=== PATIENT | male | born 1950 | race Caucasian/White ===

== ENCOUNTER 2017-07-16 03:12 | Emergency (ER) | payer MEDICARE, BC ==
--- NOTE | 2017-07-16 03:34 | EDM.PDOC ---
ED HPI GENERAL MEDICAL PROBLEM - General Chief Complaint: ENT Problem Stated Complaint: bleeding teeth extraction site Time Seen by Provider: 07/16/17 03:25 Source of Information: Reports: Patient, Family (), Old Records ([facility] chart/EMR) History Limitations: Reports: No Limitations - History of Present Illness INITIAL COMMENTS - FREE TEXT/NARRATIVE: The patient was brought to the emergency room via private automobile by his for evaluation of persistent mild bleeding from previous right upper molar extraction, which was conducted by Dr. Akhtar at about 15:30 hours on 07/14. The bleeding did stop at about 14:00 hours yesterday afternoon, however returned at about 23:00 hours this evening with 2 soaked 2 x 2's since that time. Patient has been taking 1000 mg of Tylenol twice a day basis since the above tooth extraction with last dose at 18:00 hours. No other changes in his medications recently, including recent antibiotics, etc. The tooth was extracted secondary to the patient chipping his tooth at about noon on 07/14. The patient denies any chest pain/pressure, heart flutter, dizziness, orthostasis, orthopnea, diaphoresis, paresthesias, recent decreased exercise tolerance, or any other anginal-type symptoms. No recent history of abdominal pain, heartburn, nausea, diarrhea, melena, gross hematochezia, or any food intolerance, including fatty foods, etc.. The patient also denies any recent fever, cough, wheezing, dyspnea , etc.. He also denies any gross hematuria or other UTI symptoms. Onset: Gradual Onset Date: 07/15/17 Onset Time: 23:00 Duration: Constant Location: Reports: Other (As above) Quality: Reports: Ache Severity: Mild Improves with: Reports: None Worsens with: Reports: None Context: Reports: Other (As above) Associated Symptoms: Reports: No Other Symptoms. Denies: Confusion, Chest Pain , Cough, Diaphoresis, Fever/Chills, Headaches, Malaise, Nausea/Vomiting, Shortness of Breath, Syncope, Weakness Treatments IP LITIGATION PARALEGAL: Reports: Acetaminophen, Dressing(s) (As above) Right Upper Oral/Mouth Pain Score (Numeric/FACES): 4 Right Upper Tooth/Teeth Pain Score (Numeric/FACES): 4 - Related Data Allergies Allergy/AdvReac Type Severity Reaction Status Date / Time ciprofloxacin Allergy Cannot Verified 07/16/17 03:15 Remember NSAIDS (Non-Steroidal Allergy Other Verified 07/16/17 03:15 Anti-Inflamma Sulfa (Sulfonamide Allergy Nausea and Verified 07/16/17 03:15 Antibiotics) Vomiting zolpidem tartrate Allergy Anaphylactic Verified 07/16/17 03:15 [From Kat] Shock Home Meds: Home Meds Carvedilol 1.5 tab PO BID 02/27/14 [History] Losartan [Cozaar] 0.5 tab PO BEDTIME 02/27/14 [History] [place]-3S/DHA/Epa/Fish Oil/D3 [Fish Cxb-Wskjl-7-Vit D Softgel] 1 cap PO DAILY 10/06 [History] Warfarin Sodium [Jantoven] 0.5 tab PO ASDIRECTED 02/27/14 [History] Warfarin [Coumadin] 2.5 mg PO ASDIRECTED 02/27/14 [History] atorvaSTATin Calcium [Atorvastatin Calcium] 10 mg PO BEDTIME 02/27/14 [History] Loratadine [Claritin] 10 mg PO BID PRN 05/02/14 [History] Aspirin [Halfprin] 81 mg PO DAILY 07/16/17 [History] Calcium Carbonate/Vitamin D3 [Calcium 600-Vit D3 800 Tab] 1 tab PO DAILY [History] Mesalamine [Delzicol] 1 tab PO BID 07/16/17 [History] Past Medical History HEENT History: Reports: Allergic Rhinitis, Impaired Vision, Other (See Below). Denies: Cataract, Glaucoma, Hard of Hearing, Macular Degeneration, Retinal Detachment Other HEENT History: Patient wears glasses Cardiovascular History: Reports: Afib, Arrhythmia, Blood Clots/VTE/DVT, CAD, Cardiomyopathy, Heart Failure, Heart Murmur, High Cholesterol, Hypertension, Pacemaker, PVD, Other (See Below). Denies: Aneurysm, [place], PTCA, Stents, Syncope Other Cardiovascular History: PVCs, complete right bundle branch block, and history of atrial fibrillation and flutter with rapid ventricular response. DVT of the left arm on 01/13/12. Dilated cardiomyopathy. Aortic valve stenosis and mitral valve insufficiency by clinical exam. Mild right-sided carotid occlusive disease Respiratory History: Reports: COPD, Sleep Apnea, Other (See Below) Other Respiratory History: COPD and minimal pulmonary fibrosis by chest x-ray. Patient is not using his CPAP for his sleep apnea for quite some time Gastrointestinal History: Reports: Cholelithiasis, Chronic Diarrhea, Colon Polyp , Diverticulosis, Gastritis, GI Bleed, Hepatitis, Inflammatory Bowel Disease, Jaundice, Pancreatitis, Other (See Below). Denies: Bowel Obstruction, Celiac Disease, Chronic Constipation, Fecal Incontinence, GERD, Hiatal Hernia, Irritable Bowel Syndrome, PUD Other Gastrointestinal History: Ulcerative colitis initially diagnosed at age 21. Diverticulosis by CT scan. Hyperplastic colonic polyp removed at 30 cm via colonoscopy on 02/22/16. Mild GI bleed secondary to either gastritis versus exacerbation of his ulcerative colitis. Hepatitis secondary to cholelithiasis with secondary pancreatitis in January 2009 including pancreatic pseudocyst by CT scan on 03/10/09 Genitourinary History: Reports: BPH, Chronic Renal Insuffiency, Renal Calculus, Other (See Below). Denies: Acute Renal Failure, STD, Urinary Incontinence, UTI , Recurrent Other Genitourinary History: Mild BPH by CT scan. History of right-sided urolithiasis initially diagnosed on 02/27/14 with subsequent moderate hydronephrosis on 05/02/14 requiring stone extraction as below. Mild renal insufficiency. Benign left-sided renal cyst by CT scan on 02/27/14 Musculoskeletal History: Reports: Arthritis, Osteoarthritis. Denies: Amputation , Back Pain, Chronic, Fracture, Gout, Neck Pain, Chronic, RA, SLE Neurological History: Reports: Vertigo. Denies: Cerebral Aneurysms, Concussion , CVA, Headaches, Chronic, Head Trauma, Migraines, MS, Neuropathy, Diabetic, Neuropathy, Peripheral, Parkinson's, Seizure, TIA Psychiatric History: Reports: None. Denies: Abuse, Victim of, ADD, ADHD, Addiction, Anxiety, Depression, Psych Hospitalization(s), Psychosis, PTSD, Suicide Attempt, Suicidal Ideation Endocrine/Metabolic History: Reports: None. Denies: Diabetes, Type I, Diabetes , Type II, Diabetes Mellitus, Type 3c, Hyperthyroidism, Hypothyroidism, IDDM, Osteoporosis Hematologic History: Reports: None. Denies: Anemia, Blood Transfusion(s), Iron Deficiency Immunologic History: Reports: None. Denies: AIDS, HIV, SLE Oncologic (Cancer) History: Reports: None. Denies: Basal Cell Carcinoma, Colon , Hodgkin's Lymphoma, Leukemia, Malignant Melanoma, Non-Hodgkin's Lymphoma, Prostate, Squamous Cell Carcinoma Dermatologic History: Reports: None. Denies: Eczema, Psoriasis - Infectious Disease History Infectious Disease History: Reports: Chicken Pox, Mumps. Denies: C-Difficile, Measles, Meningitis, Mononucleosis, MRSA, Pertussis (Whooping Cough), Rheumatic Fever, Rubella, Scarlet Fever, Shingles, TB, VRE - Past Surgical History Head Surgeries/Procedures: Reports: None HEENT Surgical History: Reports: Oral Surgery, Other (See Below). Denies: Adenoidectomy, Cataract Surgery, Eye Surgery, Laser Surgery, LASIK, Myringotomy w Tube(s), Naso-Sinus Surgery, Tonsillectomy Other HEENT Surgeries/Procedures: Right upper molar extraction on 07/14/17 Cardiovascular Surgical History: Reports: Pacer, Other (See Below). Denies: Varicose, Vascular Surgery Other Cardiovascular Surgeries/Procedures: AICD/pacemaker placement in May 2010 Respiratory Surgical History: Reports: None. Denies: Thoracentesis GI Surgical History: Reports: Cholecystectomy, Colonoscopy, Hernia, Inguinal, Polypectomy, Other (See Below). Denies: Appendectomy, EGD, Hernia, Abdominal, Hernia Repair/Other Other GI Surgeries/Procedures: History of recurrent benign colonic polyps with removal of hyperplastic colonic polyp as above at time of last colonoscopy on with previous procedure on 12/31/12. Laparoscopic cholecystectomy on . Direct\Indirect right inguinal hernia repair in about 2011 with additional history of left inguinal hernia repair Male Surgical History: Reports: Circumcision, Renal Calculus, Ureteral Stent , Vasectomy, Other (See Below). Denies: Prostate Biopsy, TURP-Transurethral Resection of Prostate Other Male Surgeries/Procedures: Circumcision as an . Vasectomy in about 1975. Right sided ureteral stone extraction in May 2014 Endocrine Surgical History: Reports: None. Denies: Thyroidectomy Neurological Surgical History: Reports: None. Denies: C-Spine, Discectomy, Laminectomy, Lumbar Spine, Sacral Spine, Spinal Fusion, Vertebroplasty Musculoskeletal Surgical History: Reports: None. Denies: Arthroscopic Procedure , Carpal Tunnel, Ganglion Cyst, Joint Replacement, ORIF, Shoulder Surgery Oncologic Surgical History: Reports: None Dermatological Surgical History: Reports: None - Past Imaging History Past Imaging History: Reports: Angiography (Heart catheterization last in November 2008), Carotid US (03/12/13), CAT Scan (CT of the abdomen and pelvis using kidney stone protocol on 05/02/[address] scan of the abdomen and pelvis on 02/27/14. CT of the head on 03/12/13), MRI (Abdomen on 03/13/09), Ultrasound (Renal ultrasound on 05/06/14. Abdominal ultrasound on 03/10/09) Social & Family History - Family History Cardiac: Reports: CAD, [place], Other (See Below) Other Cardiac Family History: Father with fatal NY in his early 90s. Paternal grandfather with fatal [place] at about age 90. Maternal grandfather with fatal NY in her 70s GI: Reports: Inflammatory Bowel Disease, Other (See Below) Other GI Family History: Younger brother and twin sister with Crohn's disease. One nephew with ulcerative colitis. Patient denies 5 siblings having ulcerative colitis in the past despite medical records Endocrine/Metabolic: Reports: Diabetes, type II, IDDM, Other (See Below) Other Endocrine/Metabolic Family History: Father with IDDM - Tobacco Use Smoking Status *Q: Never Smoker Used Tobacco, but Quit: No Smoking Cessation Information Provided To Patient: No Second Hand Smoke Exposure: No Second Hand Smoke Education Provided: No - Caffeine Use Caffeine Use: Reports: Soda (1 per week). Denies: Coffee, Energy Drinks, Tea - Alcohol Use Days Per Week of Alcohol Use: 0 (No previous DWI, etc.) Alcohol Use in Last Twelve Months: No - Recreational Drug Use Recreational Drug Use: No Drug Use in Last 12 Months: No Recreational Drug Type: Denies: Amphetamines (Speed), Cocaine, Heroin, Inhalants (Glues, Solvents, Aerosols), LSD (Acid), Marijuana/Hashish, Methamphetamine, Morphine - Living Situation & Occupation Living situation: Reports: (1974, 2 children), with Family Occupation: Retired (Retired at age 2010 from [employer] will work) ED ROS GENERAL - Review of Systems Review Of Systems: ROS reveals no pertinent complaints other than HPI. ED EXAM, GENERAL - Physical Exam Exam: See Below Exam Limited By: No Limitations General Appearance: Alert, WD/WN, No Apparent Distress Eye Exam: Bilateral Eye: EOMI, Normal Inspection (No nystagmus. Patient wearing glasses), PERRL Ears: Normal External Exam, Normal Canal, Hearing Grossly Normal, Normal TMs Nose: Normal Inspection, Normal Mucosa, No Blood Throat/Mouth: Normal Lips, Normal Gums, Normal Voice, No Airway Compromise. No : Normal Teeth (Mild bleeding from right upper molar extraction site), Normal Oropharynx, Dysphagia, Inflammation, Perioral Cyanosis Head: Atraumatic, Normocephalic. No: Facial Swelling, Facial Tenderness, Sinus Tenderness Neck: Normal Inspection, Supple, Non-Tender, Full Range of Motion. No: Lymphadenopathy (L), Lymphadenopathy (R), Thyromegaly Respiratory/Chest: No Respiratory Distress, Lungs Clear, Normal Breath Sounds, No Accessory Muscle Use, Chest Non-Tender. No: Pleural Rub, Retractions Cardiovascular: Normal Peripheral Pulses, Regular Rate, Rhythm, No Edema, No Gallop, No JVD, No Rub, Systolic Murmur (Mild 1/6 HUNG at the aortic and mitral valves). No: Gallop/S3, Gallop/S4, Friction Rub Peripheral Pulses: 2+: Radial (L), Radial (R) GI/Abdominal: Normal Bowel Sounds, Soft, Non-Tender, No Organomegaly, No Distention, No Abnormal Bruit, No Mass. No: Guarding (Male) Exam: Deferred Rectal (Males) Exam: Deferred Back Exam: Normal Inspection, Full Range of Motion. No: CVA Tenderness (L), CVA Tenderness (R), Muscle Spasm Extremities: Normal Inspection, Normal Range of Motion, Non-Tender, No Pedal Edema, Normal Capillary Refill. No: Lionel's Sign Neurological: Alert, Oriented, CN II-XII Intact, Normal Cognition, Normal Gait, No Motor/Sensory Deficits Psychiatric: Normal Affect, Normal Mood Skin Exam: Warm, Dry, Intact, Normal Color, No Rash. No: Diaphoretic, Ecchymosis, Petechiae Lymphatic: No Adenopathy Course - Vital Signs Last Recorded V/S: Last Vital Signs Temp 36.5 C 07/16/17 03:32 Pulse 61 07/16/17 03:44 Resp 16 07/16/17 03:44 BP 111/88 07/16/17 03:44 Pulse Ox 96 07/16/17 03:44 Vital Signs - 24 hr 07/16/17 07/16/17 07/16/17 03:32 03:44 04:12 Temperature [ 36.5 C Temporal] Pulse, 59 L 61 60 Peripheral [ Left Pulse Oximetry] Respiratory 18 16 14 Rate Blood Pressure 140/71 111/88 119/78 [Right Upper Arm] O2 Sat by Pulse 99 96 96 Oximetry - Orders/Labs/Meds Orders: Active Orders 24 hr Category Date Time Status Obtain Past Medical Record [OM.PC] Routine Oth 07/16/17 03:34 Active Labs: Laboratory Tests 07/16/17 07/16/17 Range/Units 03:45 03:45 WBC 6.6 (4.0-10.2) K/uL RBC 4.49 (4.33-5.41) M/uL Hgb 14.1 (13.1-16.8) g/dL Hct 41.4 (39.0-49.0) % MCV 92.2 (84.0-98.0) fL MCH 31.4 (28.2-33.3) pg MCHC 34.1 (31.7-36.0) g/dL RDW 13.2 (11.2-14.1) % Plt Count 215 (150-350) K/uL Neut % (Auto) 56.8 (45.0-80.0) % Lymph % (Auto) 30.7 (10.0-50.0) % [place] % (Auto) 11.2 (2.0-14.0) % Eos % (Auto) 1.1 (0.0-5.0) % Baso % (Auto) 0.2 (0.0-2.0) % Neut # (Auto) 3.76 (1.40-7.00) K/uL Lymph # (Auto) 2.03 (0.50-3.50) K/uL [place] # (Auto) 0.74 (0.00-1.00) K/uL Eos # (Auto) 0.07 (0.00-0.50) K/uL Baso # (Auto) 0.01 (0.00-0.20) K/uL PT 31.2 H (9.8-11.7) SEC INR 2.8 Meds: None - Radiology Interpretation Free Text/Narrative:: None Departure - Departure Time of Disposition: 04:40 Disposition: Home, Self-Care 01 Condition: Good Clinical Impression: Heart disease, HTN, Benign hypertension, Postoperative bleeding from mouth, Ulcerative colitis Hyperlipidemia Qualifiers: Hyperlipidemia type: unspecified Qualified Code(s): E78.5 - Hyperlipidemia, unspecified Atrial fibrillation Qualifiers: Atrial fibrillation type: chronic Qualified Code(s): I48.2 - Chronic atrial fibrillation - Discharge Information Instructions: Dental Extraction, Care After, [id number] Referrals: Luna Mas NP [Primary Care Provider] - Forms: ED Department Discharge Additional Instructions: 1. Follow-up with dentist as needed depending on degree of further bleeding from extraction site as discussed 2. Hold Coumadin today and resume previous dose regimen on 07/17. Contact regular provider for further instructions on Coumadin therapy, if significant bleeding persists on 07/17 3. Hold aspirin and fish oil until 07/19 and then resume at that time, if no significant bleeding persists 4. Continue to use packing at all times, including while eating, etc., as discussed until bleeding stops completely for 48 hours - Problem List & Annotations (1) Postoperative bleeding from mouth SNOMED Code(s): 718579578 Code(s): GQR4291 - Status: Acute Priority: High Current Visit: Yes Onset Date: 07/14/17 Annotation/Comment:: The patient did not receive any instructions about holding his Coumadin or other medications despite recent tooth extraction as above. INR therapeutic today. Tylenol to be discontinued secondary to his persistent mild postoperative bleeding. He will also hold his fish oil and aspirin as per discharge instructions. Continue close follow-up by his regular provider and/or dentist. Only minimal bleeding at this time with no indication of vitamin K therapy, etc. (2) HTN, Benign hypertension SNOMED Code(s): 58592461 Code(s): I10 - ESSENTIAL (PRIMARY) HYPERTENSION Status: Acute Priority: Medium Current Visit: Yes Annotation/Comment:: Blood pressures under relatively good control today in the emergency room. (3) Heart disease SNOMED Code(s): 00292084 Code(s): I51.9 - HEART DISEASE, UNSPECIFIED Status: Acute Priority: Medium Current Visit: Yes Annotation/Comment:: No recent chest pain or anginal type symptoms. Note chronic Coumadin therapy secondary to his atrial fibrillation and previous history of DVT as above. Patient with history coronary artery disease without [place] with additional history of atrial fibrillation/flutter, dilatated cardiomyopathy, pacemaker/ICD placement, etc.. Patient's INR is therapeutic today. 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 (4) Atrial fibrillation SNOMED Code(s): 80133815 Code(s): I48.91 - UNSPECIFIED ATRIAL FIBRILLATION Status: Chronic Priority: Medium Current Visit: Yes Annotation/Comment:: As above Qualifiers: Atrial fibrillation type: chronic Qualified Code(s): I48.2 - Chronic atrial fibrillation (5) Ulcerative colitis SNOMED Code(s): 07990601 Code(s): K51.90 - ULCERATIVE COLITIS, UNSPECIFIED, WITHOUT COMPLICATIONS Status: Chronic Priority: Medium Current Visit: Yes Annotation/Comment:: Stable by history with no evidence of GI bleeds despite Coumadin therapy Qualifiers: Ulcerative colitis location: other ulcerative colitis Digestive disease complication type: without complication Qualified Code(s): K51.80 - Other ulcerative colitis without complications - Problem List Review Problem List Initiated/Reviewed/Updated: Yes - My Orders Last 24 Hours: My Active Orders 07/16/17 03:34 Obtain Past Medical Record [OM.PC] Routine - Assessment/Plan Last 24 Hours: My Active Orders 07/16/17 03:34 Obtain Past Medical Record [OM.PC] Routine Assessment:: As above Plan: As above. Extensive precautions were given to the patient and his , who are in agreement with the treatment plan. See Patient Instructions for further treatment and plan.
[2017-07-16 04:13] VITALS: BP 119/78
== END 2017-07-16 04:40 | disposition home or self-care (01) ==
LOC: LL.ED 03:12
DX: K91.841 Postprocedural hemorrhage of a digestive system organ or structure following other procedure (principal); I13.0 Hypertensive heart and chronic kidney disease with heart failure and stage 1 through stage 4 chronic kidney disease, or unspecified chronic kidney disease; I50.9 Heart failure, unspecified; N18.9 Chronic kidney disease, unspecified; E78.00 Pure hypercholesterolemia, unspecified; K51.90 Ulcerative colitis, unspecified, without complications; E78.5 Hyperlipidemia, unspecified; I48.2 Chronic atrial fibrillation; Z88.1 Allergy status to other antibiotic agents; Z88.2 Allergy status to sulfonamides; Z88.8 Allergy status to other drugs, medicaments and biological substances; Z79.82 Long term (current) use of aspirin; Z79.899 Other long term (current) drug therapy
CPT/HCPCS: 36415; 85025; 85610; 99282; 99284

== ENCOUNTER 2019-08-19 02:45 | Emergency (ER) | payer MEDICARE, BC ==
[2019-08-19 03:00] VITALS: BP 128/64; PULSE 72
[2019-08-19] MEDS ORDERED: Ketorolac 60 MG/2 ML SDV IM ONE (03:40)
[2019-08-19] MEDS ORDERED: methylPREDNISolone Sodium Succinate 125 MG/2 ML SDV IM ONE (03:41)
--- NOTE | 2019-08-19 03:47 | EDM.PDOC ---
ED HPI GENERAL MEDICAL PROBLEM - General Chief Complaint: Back Pain or Injury Stated Complaint: Back Pain Time Seen by Provider: 08/19/19 03:00 Source of Information: Reports: Patient History Limitations: Reports: No Limitations - History of Present Illness INITIAL COMMENTS - FREE TEXT/NARRATIVE: Pain in left upper back for several days extends out to shoulder blade Pt did see chiropractor yesterday with little improvement No known injury No previous hx/o same did take ibuprofen earlier tonight Pain is unchanged at 7/ 10 Pain worse with palpation or movement Onset: Gradual Duration: Day(s):, Getting Worse Location: Reports: Back Quality: Reports: Throbbing Severity: Moderate Improves with: Reports: Immobilization Worsens with: Reports: Movement Left Upper Back Pain Score (Numeric/FACES): 8 - Related Data Allergies Allergy/AdvReac Type Severity Reaction Status Date / Time ciprofloxacin Allergy Cannot Verified 08/19/19 02:47 Remember NSAIDS (Non-Steroidal Allergy Other Verified 08/19/19 02:47 Anti-Inflamma Sulfa (Sulfonamide Allergy Nausea and Verified 08/19/19 02:47 Antibiotics) Vomiting zolpidem tartrate Allergy Anaphylactic Verified 08/19/19 02:47 [From Kat] Shock Home Meds: Home Meds Losartan [Cozaar] 0.5 tab PO BEDTIME 02/27/14 [History] [place]-3S/DHA/Epa/Fish Oil/D3 [Fish Uip-Bkywi-5-Vit D Softgel] 1 cap PO DAILY 10/06 [History] Warfarin Sodium [Jantoven] 0.5 tab PO ASDIRECTED 02/27/14 [History] Warfarin [Coumadin] 2.5 mg PO ASDIRECTED 02/27/14 [History] atorvaSTATin Calcium [Atorvastatin Calcium] 10 mg PO BEDTIME 02/27/14 [History] carvediloL [Carvedilol] 1.5 tab PO BID 02/27/14 [History] Loratadine [Claritin] 10 mg PO BID PRN 05/02/14 [History] Aspirin [Halfprin] 81 mg PO DAILY 07/16/17 [History] Calcium Carbonate/Vitamin D3 [Calcium 600-Vit D3 800 Tab] 1 tab PO DAILY [History] Mesalamine [Delzicol] 1 tab PO BID 07/16/17 [History] Past Medical History HEENT History: Reports: Allergic Rhinitis, Impaired Vision, Other (See Below) Other HEENT History: Patient wears glasses Cardiovascular History: Reports: Afib, Arrhythmia, Blood Clots/VTE/DVT, CAD, Cardiomyopathy, Heart Failure, Heart Murmur, High Cholesterol, Hypertension, Pacemaker, PVD, Other (See Below) Other Cardiovascular History: PVCs, complete right bundle branch block, and history of atrial fibrillation and flutter with rapid ventricular response. DVT of the left arm on 01/13/12. Dilated cardiomyopathy. Aortic valve stenosis and mitral valve insufficiency by clinical exam. Mild right-sided carotid occlusive disease Respiratory History: Reports: COPD, Sleep Apnea, Other (See Below) Other Respiratory History: COPD and minimal pulmonary fibrosis by chest x-ray. Patient is not using his CPAP for his sleep apnea for quite some time Gastrointestinal History: Reports: Cholelithiasis, Chronic Diarrhea, Colon Polyp , Diverticulosis, Gastritis, GI Bleed, Hepatitis, Inflammatory Bowel Disease, Jaundice, Pancreatitis, Other (See Below) Other Gastrointestinal History: Ulcerative colitis initially diagnosed at age 21. Diverticulosis by CT scan. Hyperplastic colonic polyp removed at 30 cm via colonoscopy on 02/22/16. Mild GI bleed secondary to either gastritis versus exacerbation of his ulcerative colitis. Hepatitis secondary to cholelithiasis with secondary pancreatitis in January 2009 including pancreatic pseudocyst by CT scan on 03/10/09 Genitourinary History: Reports: BPH, Chronic Renal Insuffiency, Renal Calculus, Other (See Below) Other Genitourinary History: Mild BPH by CT scan. History of right-sided urolithiasis initially diagnosed on 02/27/14 with subsequent moderate hydronephrosis on 05/02/14 requiring stone extraction as below. Mild renal insufficiency. Benign left-sided renal cyst by CT scan on 02/27/14 Musculoskeletal History: Reports: Arthritis, Osteoarthritis Neurological History: Reports: Vertigo Psychiatric History: Reports: None Endocrine/Metabolic History: Reports: None Hematologic History: Reports: None Immunologic History: Reports: None Oncologic (Cancer) History: Reports: None Dermatologic History: Reports: None - Infectious Disease History Infectious Disease History: Reports: Chicken Pox, Mumps - Past Surgical History Head Surgeries/Procedures: Reports: None HEENT Surgical History: Reports: Oral Surgery, Other (See Below) Other HEENT Surgeries/Procedures: Right upper molar extraction on 07/14/17 Cardiovascular Surgical History: Reports: Pacer, Other (See Below) Other Cardiovascular Surgeries/Procedures: AICD/pacemaker placement in May 2010 Respiratory Surgical History: Reports: None GI Surgical History: Reports: Cholecystectomy, Colonoscopy, Hernia, Inguinal, Polypectomy, Other (See Below) Other GI Surgeries/Procedures: History of recurrent benign colonic polyps with removal of hyperplastic colonic polyp as above at time of last colonoscopy on with previous procedure on 12/31/12. Laparoscopic cholecystectomy on . Direct\Indirect right inguinal hernia repair in about 2011 with additional history of left inguinal hernia repair Male Surgical History: Reports: Circumcision, Renal Calculus, Ureteral Stent , Vasectomy, Other (See Below) Other Male Surgeries/Procedures: Circumcision as an . Vasectomy in about 1975. Right sided ureteral stone extraction in May 2014 Endocrine Surgical History: Reports: None Neurological Surgical History: Reports: None Musculoskeletal Surgical History: Reports: None Oncologic Surgical History: Reports: None Dermatological Surgical History: Reports: None - Past Imaging History Past Imaging History: Reports: Angiography (Heart catheterization last in November 2008), Carotid US (03/12/13), CAT Scan (CT of the abdomen and pelvis using kidney stone protocol on 05/02/[address] scan of the abdomen and pelvis on 02/27/14. CT of the head on 03/12/13), MRI (Abdomen on 03/13/09), Ultrasound (Renal ultrasound on 05/06/14. Abdominal ultrasound on 03/10/09) Social & Family History - Family History Cardiac: Reports: CAD, TN, Other (See Below) Other Cardiac Family History: Father with fatal TN in his early 90s. Paternal grandfather with fatal TN at about age 90. Maternal grandfather with fatal TN in her 70s GI: Reports: Inflammatory Bowel Disease, Other (See Below) Other GI Family History: Younger brother and twin sister with Crohn's disease. One nephew with ulcerative colitis. Patient denies 5 siblings having ulcerative colitis in the past despite medical records Endocrine/Metabolic: Reports: Diabetes, type II, IDDM, Other (See Below) Other Endocrine/Metabolic Family History: Father with IDDM - Tobacco Use Smoking Status *Q: Never Smoker Second Hand Smoke Exposure: No - Caffeine Use Caffeine Use: Reports: Coffee - Recreational Drug Use Recreational Drug Use: No - Living Situation & Occupation Living situation: Reports: (1973, 2 children), with Family Occupation: Retired (Retired at age 2010 from [employer] will work) ED ROS GENERAL - Review of Systems Review Of Systems: See Below Respiratory: Reports: No Symptoms Cardiovascular: Reports: No Symptoms GI/Abdominal: Reports: No Symptoms Musculoskeletal: Reports: Shoulder Pain, Back Pain Neurological: Reports: No Symptoms ED EXAM, UPPER BACK/NECK PAIN - Physical Exam Exam: See Below Exam Limited By: No Limitations General Appearance: Moderate Distress Neck Exam: Non-Tender Cardiovascular/Respiratory: Regular Rate, Rhythm, Normal Breath Sounds Back Exam: Other (Left upper back feeder plywood layup line over trapezius muscle and upper back Right non-tender Increased pain with movement Neuro exam intact Elbow wrist and hand intact Sensation intact) Course - Vital Signs Last Recorded V/S: Last Vital Signs Temp 98.7 F 08/19/19 02:58 Pulse 72 08/19/19 02:58 Resp 12 08/19/19 02:58 BP 128/64 08/19/19 02:58 Pulse Ox 98 08/19/19 02:58 - Orders/Labs/Meds Orders: Active Orders 24 hr Category Date Time Status Ketorolac [Toradol] Med 08/19/19 03:40 Once 60 mg IM ONETIME ONE methylPREDNISolone Sod Succ [Solu-MEDROL] Med 08/19/19 03:41 Once 125 mg IM ONETIME ONE Labs: Laboratory Tests 08/19/19 Range/Units 02:55 Specimen Type Urinblad Urine Color Yellow Urine Appearance Clear Urine pH 6.0 (5.0-9.0) Ur Specific H[place] 1.025 (1.005-1.030) Urine Protein Negative (NEGATIVE) mg/dL Urine Glucose (UA) Negative (NEGATIVE) mg/dL Urine Ketones Negative (NEGATIVE) mg/dL Urine Occult Blood Small H (NEGATIVE) Urine Nitrite Negative (NEGATIVE) Urine Bilirubin Negative (NEGATIVE) Urine Urobilinogen 0.2 (0.2-1.0) E.U./dL Ur Leukocyte Esterase Trace H (NEGATIVE) Urine RBC 0-5 /HPF Urine WBC 10-20 H /HPF Ur Epithelial Cells Few /LPF Urine Bacteria Rare (NONE TO FEW) /HPF Urine Mucus Rare H (NEGATIVE) /LPF - Re-Assessments/Exams Free Text/Narrative Re-Assessment/Exam: 08/19/19 03:46 Pt given Toradol 60 mg and Solu-medrol 125 mg IM in ER Departure - Departure Time of Disposition: 04:00 Disposition: Home, Self-Care 01 Clinical Impression: Upper back pain on left side - Discharge Information *PRESCRIPTION DRUG MONITORING PROGRAM REVIEWED*: Not Applicable *COPY OF PRESCRIPTION DRUG MONITORING REPORT IN PATIENT PETE: Not Applicable Referrals: Luna Mas NP [Primary Care Provider] - Additional Instructions: Follow up in clinic Sepsis Event Note - Evaluation Sepsis Screening Result: No Definite Risk - Focused Exam Vital Signs: Vital Signs Temp Pulse Resp BP Pulse Ox 08/19/19 02:58 98.7 F 72 12 128/64 98 Date Exam was Performed: 08/19/19 Time Exam was Performed: 03:42 - My Orders Last 24 Hours: My Active Orders 08/19/19 03:40 Ketorolac [Toradol] 60 mg IM ONETIME ONE 08/19/19 03:41 methylPREDNISolone Sod Succ [Solu-MEDROL] 125 mg IM ONETIME ONE - Assessment/Plan Last 24 Hours: My Active Orders 08/19/19 03:40 Ketorolac [Toradol] 60 mg IM ONETIME ONE 08/19/19 03:41 methylPREDNISolone Sod Succ [Solu-MEDROL] 125 mg IM ONETIME ONE
[2019-08-19] MEDS ORDERED: Cyclobenzaprine 10 MG Tab PO ONE (03:50)
== END 2019-08-19 04:05 | disposition home or self-care (01) ==
LOC: LL.ED 02:45
DX: M54.6 Pain in thoracic spine (principal); I13.0 Hypertensive heart and chronic kidney disease with heart failure and stage 1 through stage 4 chronic kidney disease, or unspecified chronic kidney disease; N18.9 Chronic kidney disease, unspecified; I50.9 Heart failure, unspecified; I48.91 Unspecified atrial fibrillation; I25.10 Atherosclerotic heart disease of native coronary artery without angina pectoris; E78.00 Pure hypercholesterolemia, unspecified; Z86.718 Personal history of other venous thrombosis and embolism; J44.9 Chronic obstructive pulmonary disease, unspecified; M19.90 Unspecified osteoarthritis, unspecified site; Z88.2 Allergy status to sulfonamides; Z88.1 Allergy status to other antibiotic agents; Z88.8 Allergy status to other drugs, medicaments and biological substances; Z79.82 Long term (current) use of aspirin; Z79.899 Other long term (current) drug therapy
CPT/HCPCS: 81001; 96372; 99283; A9270; J1885; J2930

== ENCOUNTER 2022-10-03 12:01 | Emergency (ER) | payer OTHER, MEDICARE, BC ==
[2022-10-03 12:19] LABS: BASOPHILS ABSOLUTE AUTO 0.08 K/uL (0.00-0.20); BASOPHILS PERCENT AUTO 0.6 % (0.0-2.0); EOSINOPHILS ABSOLUTE AUTO 0.34 K/uL (0.00-0.50); EOSINOPHILS PERCENT AUTO 2.4 % (0.0-5.0); HEMATOCRIT 36.9 % (39.0-49.0); HEMOGLOBIN 11.9 g/dL (13.1-16.8); LYMPHOCYTES ABSOLUTE AUTO 1.91 K/uL (0.50-3.50); LYMPHOCYTES PERCENT AUTO 13.6 % (10.0-50.0); MEAN CORPUSCULAR HEMOGLOBIN 31.2 pg (28.2-33.3); MEAN CORPUSCULAR HGB CONC 32.2 g/dL (31.7-36.0); MEAN CORPUSCULAR VOLUME 96.9 fL (84.0-98.0); MONOCYTES ABSOLUTE AUTO 1.11 K/uL (0.00-1.00); MONOCYTES PERCENT AUTO 7.9 % (2.0-14.0); NEUTROPHILS ABSOLUTE AUTO 10.63 K/uL (1.40-7.00); NEUTROPHILS PERCENT AUTO 75.5 % (45.0-80.0); PLATELET COUNT,PLT 571 K/uL (150-350); RED BLOOD CELL COUNT 3.81 M/uL (4.33-5.41); RED CELL DISTRIBUTION WIDTH 13.7 % (11.2-14.1); WHITE BLOOD CELL COUNT,WBC 14.1 K/uL (4.0-10.2)
[2022-10-03] MEDS ORDERED: Diltiazem 25 MG/5 ML SDV IVPUSH ONE (12:21)
[2022-10-03] MEDS ORDERED: Sodium Chloride 0.9% 1,000 ML IV ONE ×2 (12:30→16:43)
[2022-10-03 12:32] LABS: INR 1.1
[2022-10-03 12:35] LABS: PROTHROMBIN TIME 10.6 SEC (9.6-11.3)
[2022-10-03 12:47] LABS: ALANINE AMINOTRANSFERASE,ALT 24 U/L (12-78); ALBUMIN 3.5 g/dL (3.4-5.0); ALKALINE PHOSPHATASE 114 IU/L (46-116); ANION GAP 10.5 meq/L (7-15); ASPARTATE AMNIOTRANSFERASE,AST 20 U/L (15-37); BILIRUBIN TOTAL 0.5 mg/dL (0.2-1.0); BLOOD UREA NITROGEN,BUN 21 mg/dL (7-18); CALCIUM 9.4 mg/dL (8.5-10.1); CARBON DIOXIDE,CO2 27.5 mmol/L (21.0-32.0); CHLORIDE,CL 102 mmol/L (98-107); CREATININE 1.36 mg/dL (0.51-1.17); GLUCOSE RANDOM 130 mg/dL (70-99); MAGNESIUM 1.9 mg/dL (1.8-2.4); POTASSIUM,K 4.4 mmol/L (3.5-5.1); PRO B-TYPE NATRIUR PEPT,BNPPRO 4175 pg/mL (0-125); PROTEIN TOTAL,TP 7.7 g/dL (6.4-8.2); SODIUM,NA 140 mmol/L (136-145)
[2022-10-03 12:48] LABS: ESTIMATED GFR 55 mL/min (>=60)
[2022-10-03] MEDS ORDERED: Metoprolol Succinate 25 MG Tab.ER PO ONE (12:57)
[2022-10-03] MEDS ORDERED: Sodium Chloride 0.9% 10 ML Syringe FLUSH PRN (14:03)
[2022-10-03] MEDS ORDERED: Iopamidol 755 Mg/ML 100 ML Bottle IVPUSH ONE (14:03)
[2022-10-03] MEDS ORDERED: Apixaban 5 MG Tab PO ONE (15:20)
[2022-10-03] MEDS ORDERED: Heparin Sodium 5,000 Units/ML Vial IVPUSH ONE (15:53)
[2022-10-03] MEDS ORDERED: Heparin Sodium/0.45% NaCl 500 ML IV SCH (16:00)
[2022-10-03 19:44] LABS: APPEARANCE,URINE CLEAR; BILIRUBIN,URINE NEGATIVE (NEGATIVE); COLOR,URINE YELLOW; GLUCOSE,URINE NEGATIVE (NEGATIVE); KETONES,URINE NEGATIVE (NEGATIVE); LEUKOCYTE ESTERASE,URINE NEGATIVE (NEGATIVE); NITRITE,URINE NEGATIVE (NEGATIVE); OCCULT BLOOD,URINE TRACE-INTACT (NEGATIVE); PROTEIN,URINE NEGATIVE (NEGATIVE); UROBILINOGEN,URINE 0.2 E.U./dL (0.2-1.0)
[2022-10-03 19:45] LABS: BACTERIA,URINE NOT SEEN /HPF (NONE TO FEW); EPITHELIAL CELLS,URINE FEW /LPF
[2022-10-03 22:18] VITALS: BP 119/61; PULSE 75
== END 2022-10-03 19:23 ==
LOC: LL.ED 12:01
DX: I26.92 Saddle embolus of pulmonary artery without acute cor pulmonale (principal); I48.91 Unspecified atrial fibrillation; I25.10 Atherosclerotic heart disease of native coronary artery without angina pectoris; I13.0 Hypertensive heart and chronic kidney disease with heart failure and stage 1 through stage 4 chronic kidney disease, or unspecified chronic kidney disease; N18.9 Chronic kidney disease, unspecified; I50.9 Heart failure, unspecified; E78.00 Pure hypercholesterolemia, unspecified; J44.9 Chronic obstructive pulmonary disease, unspecified; M19.90 Unspecified osteoarthritis, unspecified site; I44.0 Atrioventricular block, first degree; Z88.1 Allergy status to other antibiotic agents; Z88.6 Allergy status to analgesic agent; Z88.2 Allergy status to sulfonamides; Z88.8 Allergy status to other drugs, medicaments and biological substances; Z79.82 Long term (current) use of aspirin; Z79.899 Other long term (current) drug therapy
CPT/HCPCS: 36415; 71045; 71275; 80053; 81001; 83605; 83735; 83880; 84484; 85025; 85379; 85610; 85730; 93005; 96361; 96365; 96376; 99285-25; A9270-GY; J1644; J3490; J7030; Q9967

== ENCOUNTER 2022-12-01 19:12 | Observation (INO) | payer OTHER, MEDICARE, BC ==
[2022-12-01 19:47] LABS: BASOPHILS ABSOLUTE AUTO 0.04 K/uL (0.00-0.20); BASOPHILS PERCENT AUTO 0.3 % (0.0-2.0); EOSINOPHILS ABSOLUTE AUTO 0.16 K/uL (0.00-0.50); EOSINOPHILS PERCENT AUTO 1.3 % (0.0-5.0); HEMATOCRIT 41.2 % (39.0-49.0); HEMOGLOBIN 13.3 g/dL (13.1-16.8); LYMPHOCYTES ABSOLUTE AUTO 1.84 K/uL (0.50-3.50); LYMPHOCYTES PERCENT AUTO 14.9 % (10.0-50.0); MEAN CORPUSCULAR HEMOGLOBIN 30.1 pg (28.2-33.3); MEAN CORPUSCULAR HGB CONC 32.3 g/dL (31.7-36.0); MEAN CORPUSCULAR VOLUME 93.2 fL (84.0-98.0); MONOCYTES ABSOLUTE AUTO 0.98 K/uL (0.00-1.00); MONOCYTES PERCENT AUTO 7.9 % (2.0-14.0); NEUTROPHILS ABSOLUTE AUTO 9.31 K/uL (1.40-7.00); NEUTROPHILS PERCENT AUTO 75.6 % (45.0-80.0); PLATELET COUNT,PLT 271 K/uL (150-350); RED BLOOD CELL COUNT 4.42 M/uL (4.33-5.41); WHITE BLOOD CELL COUNT,WBC 12.3 K/uL (4.0-10.2)
[2022-12-01 20:02] LABS: APPEARANCE,URINE CLEAR; BILIRUBIN,URINE NEGATIVE (NEGATIVE); COLOR,URINE YELLOW; GLUCOSE,URINE 100 mg/dL (NEGATIVE); KETONES,URINE NEGATIVE (NEGATIVE); LEUKOCYTE ESTERASE,URINE NEGATIVE (NEGATIVE); NITRITE,URINE NEGATIVE (NEGATIVE); OCCULT BLOOD,URINE MODERATE (NEGATIVE); PH,URINE 5.5 (5.0-9.0); PROTEIN,URINE TRACE mg/dL (NEGATIVE); UROBILINOGEN,URINE 0.2 E.U./dL (0.2-1.0)
[2022-12-01 20:11] LABS: EPITHELIAL CELLS,URINE OCCASIONAL /LPF; WBC,URINE 0-5 /HPF
[2022-12-01 20:12] LABS: BACTERIA,URINE NOT SEEN /HPF (NONE TO FEW); MUCUS,URINE RARE /LPF (NEGATIVE)
[2022-12-01] MEDS ORDERED: Morphine 2 MG/ML SYRINGE IVPUSH ONE (20:23)
[2022-12-01] MEDS ORDERED: Ondansetron 4 MG/2 ML SDV IVPUSH ONE (20:23)
[2022-12-01 20:32] LABS: ALBUMIN 3.8 g/dL (3.4-5.0); ANION GAP 11.3 meq/L (7-15); BILIRUBIN TOTAL 0.5 mg/dL (0.2-1.0); CALCIUM 9.2 mg/dL (8.5-10.1); CARBON DIOXIDE,CO2 23.7 mmol/L (21.0-32.0); CREATININE 1.14 mg/dL (0.51-1.17); EST CRCL DRUG DOSING (CG) 60.55 mL/min; MAGNESIUM 1.9 mg/dL (1.8-2.4); PROTEIN TOTAL,TP 7.6 g/dL (6.4-8.2)
[2022-12-01] MEDS: Sodium Chloride 0.9% 10 ML Syringe FLUSH PRN ×2 (20:34→21:59)
[2022-12-01] MEDS ORDERED: Iopamidol 755 Mg/ML 100 ML Bottle IVPUSH STA (21:20)
[2022-12-01] MEDS ORDERED: Morphine 2 MG/ML SYRINGE IVPUSH PRN (21:25)
[2022-12-01] MEDS ORDERED: Ondansetron 4 MG/2 ML SDV IVPUSH PRN (21:25)
[2022-12-01] MEDS ORDERED: Naloxone 0.4 MG/ML SDV IVPUSH PRN (21:25)
[2022-12-01] MEDS ORDERED: methylPREDNISolone Sodium Succinate 40 MG/1 ML SDV IVPUSH ONE (21:29)
[2022-12-01] MEDS ORDERED: Sodium Chloride 0.9% 1,000 ML IV ONE (21:29)
[2022-12-01] MEDS ORDERED: traMADol 50 MG Tab PO PRN (21:29)
[2022-12-01] MEDS: Acetaminophen 325 MG Tab PO SCH (21:56)
[2022-12-02] MEDS: Acetaminophen 325 MG Tab PO SCH (02:53)
[2022-12-02 07:31] LABS: BASOPHILS ABSOLUTE AUTO 0.02 K/uL (0.00-0.20); BASOPHILS PERCENT AUTO 0.2 % (0.0-2.0); HEMATOCRIT 39.7 % (39.0-49.0); HEMOGLOBIN 12.8 g/dL (13.1-16.8); LYMPHOCYTES ABSOLUTE AUTO 0.56 K/uL (0.50-3.50); LYMPHOCYTES PERCENT AUTO 5.1 % (10.0-50.0); MEAN CORPUSCULAR HEMOGLOBIN 30.3 pg (28.2-33.3); MEAN CORPUSCULAR HGB CONC 32.2 g/dL (31.7-36.0); MEAN CORPUSCULAR VOLUME 93.9 fL (84.0-98.0); MONOCYTES ABSOLUTE AUTO 0.23 K/uL (0.00-1.00); MONOCYTES PERCENT AUTO 2.1 % (2.0-14.0); NEUTROPHILS ABSOLUTE AUTO 10.26 K/uL (1.40-7.00); NEUTROPHILS PERCENT AUTO 92.6 % (45.0-80.0); PLATELET COUNT,PLT 257 K/uL (150-350); RED BLOOD CELL COUNT 4.23 M/uL (4.33-5.41); RED CELL DISTRIBUTION WIDTH 13.7 % (11.2-14.1); WHITE BLOOD CELL COUNT,WBC 11.1 K/uL (4.0-10.2)
[2022-12-02 07:35] LABS: CALCIUM 8.9 mg/dL (8.5-10.1); EST CRCL DRUG DOSING (CG) 69.03 mL/min; POTASSIUM,K 4.8 mmol/L (3.5-5.1)
[2022-12-02] MEDS ORDERED: Apixaban 5 MG Tab PO SCH (08:00)
[2022-12-02 09:32] VITALS: BP 138/69; PULSE 62
[2022-12-02] MEDS ORDERED: Metoprolol Succinate 25 MG Tab.ER PO SCH (18:00)
[2022-12-02] MEDS ORDERED: atorvaSTATin 20 MG Tab PO SCH (20:00)
== END 2022-12-02 09:23 | disposition home or self-care (01) ==
LOC: LL.ED 19:12 → LL.MS 21:02
PROVIDERS: ADMIT Emergency Medicine; ATTEND Emergency Medicine
DX: M25.512 Pain in left shoulder (principal); R79.89 Other specified abnormal findings of blood chemistry; E11.51 Type 2 diabetes mellitus with diabetic peripheral angiopathy without gangrene; I48.91 Unspecified atrial fibrillation; I25.10 Atherosclerotic heart disease of native coronary artery without angina pectoris; I11.0 Hypertensive heart disease with heart failure; I50.9 Heart failure, unspecified; E78.00 Pure hypercholesterolemia, unspecified; J44.9 Chronic obstructive pulmonary disease, unspecified; K58.9 Irritable bowel syndrome, unspecified; G47.30 Sleep apnea, unspecified; N40.0 Benign prostatic hyperplasia without lower urinary tract symptoms; M19.90 Unspecified osteoarthritis, unspecified site; Z95.0 Presence of cardiac pacemaker; Z88.1 Allergy status to other antibiotic agents; Z88.2 Allergy status to sulfonamides; Z88.8 Allergy status to other drugs, medicaments and biological substances; Z79.84 Long term (current) use of oral hypoglycemic drugs; Z79.899 Other long term (current) drug therapy; Z79.01 Long term (current) use of anticoagulants; Z79.82 Long term (current) use of aspirin; Z90.49 Acquired absence of other specified parts of digestive tract; Z98.890 Other specified postprocedural states; Z86.711 Personal history of pulmonary embolism
CPT/HCPCS: 36415; 71045; 71275; 80048; 80053; 81001; 83605; 83735; 83880; 84484; 85025; 85379; 93005; 93010; 96361; 96374; 96375; 99284-25; A9270-GY; G0378; J2270; J2405; J2920; J3490; J7030; Q9967

== ENCOUNTER 2023-03-10 10:18 | Emergency (ER) | payer MEDICARE, BC ==
[2023-03-10 10:24] VITALS: BP 148/102; PULSE 78
== END 2023-03-10 11:28 | disposition home or self-care (01) ==
LOC: LL.ED 10:18
DX: S49.92XA Unspecified injury of left shoulder and upper arm, initial encounter (principal); S29.9XXA Unspecified injury of thorax, initial encounter; I25.10 Atherosclerotic heart disease of native coronary artery without angina pectoris; Z86.718 Personal history of other venous thrombosis and embolism; E78.00 Pure hypercholesterolemia, unspecified; I13.0 Hypertensive heart and chronic kidney disease with heart failure and stage 1 through stage 4 chronic kidney disease, or unspecified chronic kidney disease; E11.22 Type 2 diabetes mellitus with diabetic chronic kidney disease; I50.9 Heart failure, unspecified; N18.9 Chronic kidney disease, unspecified; J44.9 Chronic obstructive pulmonary disease, unspecified; G47.30 Sleep apnea, unspecified; I48.91 Unspecified atrial fibrillation; Z88.1 Allergy status to other antibiotic agents; Z88.2 Allergy status to sulfonamides; Z79.82 Long term (current) use of aspirin; Z79.01 Long term (current) use of anticoagulants; Z79.899 Other long term (current) drug therapy; Z79.84 Long term (current) use of oral hypoglycemic drugs; Z88.6 Allergy status to analgesic agent; W18.30XA Fall on same level, unspecified, initial encounter
CPT/HCPCS: 71101-LT; 73030-LT; 99283; 99284

== ENCOUNTER 2023-08-27 14:09 | Emergency (ER) | payer MEDICARE, BC ==
[2023-08-27] MEDS ORDERED: Sodium Chloride 0.9% 10 ML Syringe FLUSH PRN (14:27)
[2023-08-27 14:30] VITALS: BP 150/98; PULSE 120
[2023-08-27] MEDS: Diltiazem 25 MG/5 ML SDV IVPUSH ONE (15:00)
[2023-08-27 15:20] LABS: MAGNESIUM 2.1 mg/dL (1.8-2.4)
== END 2023-08-27 15:49 ==
LOC: LL.ED 14:09
DX: R00.0 Tachycardia, unspecified (principal); I13.0 Hypertensive heart and chronic kidney disease with heart failure and stage 1 through stage 4 chronic kidney disease, or unspecified chronic kidney disease; I50.9 Heart failure, unspecified; N18.9 Chronic kidney disease, unspecified; E78.00 Pure hypercholesterolemia, unspecified; J44.9 Chronic obstructive pulmonary disease, unspecified; Z79.82 Long term (current) use of aspirin; E11.9 Type 2 diabetes mellitus without complications; Z95.0 Presence of cardiac pacemaker; I48.91 Unspecified atrial fibrillation; Z90.49 Acquired absence of other specified parts of digestive tract; Z88.1 Allergy status to other antibiotic agents; Z88.6 Allergy status to analgesic agent; Z88.2 Allergy status to sulfonamides; Z88.8 Allergy status to other drugs, medicaments and biological substances; Z79.01 Long term (current) use of anticoagulants; Z79.899 Other long term (current) drug therapy
CPT/HCPCS: 71046; 83735; 83880; 93005; 96374; 99285-25; J3490